=== PATIENT | male | born 1960 | race Caucasian/White ===

== ENCOUNTER 2019-04-22 05:17 | Emergency (ER) | payer SELFPAY ==
[~2019-04-22] VITALS: Ht 165.1 cm; Wt 76.0 kg
[2019-04-22 05:22] VITALS: BP 168/89; PULSE 94; RESP 18; Ht 165.1 cm; Wt 76.0 kg
[2019-04-22] MEDS ORDERED: IBUPROFEN 600 MG TAB PO ONE (06:30)
[2019-04-22] MEDS ORDERED: CYCLOBENZAPRINE 10 MG TAB PO ONE (06:30)
[2019-04-22] MEDS ORDERED: CYCL10TA7 PO (06:52)
[2019-04-22] MEDS ORDERED: MED4DP PO (06:52)
[2019-04-22] MEDS ORDERED: NAPR-985 PO (06:52)
[2019-04-22] MEDS ORDERED: DEXAMETHASONE 10 MG/ML 1 ML INJ IM ONE (07:00)
--- NOTE | 2019-04-22 07:44 | ERD ---
ER Documentation Chief Complaint Chief Complaint right leg pain x 3 days. denies trauma HPI This is a pleasant 59-year-old Mohawk-speaking male presents to the ED complaining of right lower back pain x3 days. 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 He states pain is mostly localized to his right lower back and radiates to his anterior thigh and towards his dorsal foot. He denies any loss of bladder or bladder control. Denies any fevers or chills. Denies any history of IV drug use. Denies any direct trauma. He has not been taking any medications at home for this. He denies any history of similar pain. ROS All systems reviewed and are negative except as per history of present illness. Medications Home Meds Active Scripts Methylprednisolone* (Medrol* DOSE PACK) 4 Mg/Dose-Pack Tab.ds.pk, 4 MG PO . DIRECTED, #1 PACKET Prov:TREVIGRLEIGH FLORES PA-C 04/22/19 Cyclobenzaprine Hcl* (Cyclobenzaprine Hcl*) 10 Mg Tablet, 10 MG PO TID, #15 TAB Prov:TREVIGRLEIGH FLORES N PA-C 04/22/19 Naproxen* (Naprosyn*) 500 Mg Tablet, 500 MG PO BID PRN for PAIN AND/OR INF LAMMATION, #30 TAB Prov:LEIGH PORTILLO PA-C 04/22/19 Allergies Allergies: Coded Allergies: No Known Drug Allergies (Verified Allergy, Unknown, 04/22/19) PMhx/Soc Medical and Surgical Hx: pt denies Medical Hx, pt denies Surgical Hx Hx Alcohol Use: No Hx Substance Use: No Hx Tobacco Use: No Smoking Status: Never smoker Physical Exam Vitals Vital Signs Date Temp Pulse Resp B/P (MAP) Pulse Ox O2 O2 Flow FiO2 Time Delivery Rate 04/22/19 98.2 94 18 168/89 98 05:22 (115) Physical Exam Const: + In moderate distress secondary to pain. Head: Atraumatic Eyes: Normal Conjunctiva ENT: Normal External Ears, Nose and Mouth. Neck: Full range of motion. No meningismus. Resp: Clear to auscultation bilaterally Cardio: Regular rate and rhythm, no murmurs Abd: Soft, non tender, non distended. Normal bowel sounds Skin: No petechiae or rashes Back: No midline or flank tenderness. + Right paralumbar spinal tenderness to palpation.+ Straight leg raise on the right lower extremity. Bilateral lower extremity strength 5/5. Sensation grossly intact. Peripheral pulses intact. Ext: No cyanosis, or edema Neur: Awake and alert Psych: Normal Mood and Affect Results 24 hrs Current Medications Medications Dose Sig/Kushal Start Time Status Last (Trade) Ordered Route PRN Stop Time Admin Dose Reason Admin 20 mg ONCE ONCE 04/22/19 DC 04/22/19 Cyclobenzapri PO 06:30 04/22/19 06:25 ne HCl 06:31 (Flexeril) Ibuprofen 600 mg ONCE ONCE 04/22/19 DC 04/22/19 (Motrin) PO 06:30 04/22/19 06:25 06:31 10 mg ONCE ONCE 04/22/19 DC 04/22/19 Dexamethasone IM 07:00 04/22/19 07:00 (Decadron) 07:01 Procedures/MDM ED COURSE: The patient was given ibuprofen, Flexeril, Decadron The medication was well tolerated and the patient had market improvement in symptoms. The patient remained stable throughout ED course. MEDICAL DECISION MAKIN-year-old male presents with atraumatic back pain. There are no focal neurological deficits on physical exam. Advanced imaging was deferred as symptoms are likely musculoskeletal in origin. I have low suspicion for epidural abscess, cauda equina, cord compression, spinal tumor/mass or compression fracture. Patient will be treated conservatively with appropriate pain control. He was given referrals to [facility] and orthopedic centers for follow-up. Patient may benefit from physical therapy and/or steroid injections in the future. I discussed this with the patient and family at bedside. Strict return precautions were discussed. PRESCRIPTIONS: Naproxen, Flexeril, Medrol Dosepak SPECIALIST FOLLOW UP RECOMMENDED: Orthopedist Patient has been advised to follow up with primary care in 1-2 days. Blood Pressure Assessment: Patient's blood pressure was elevated (>120/80) but appears stable without evidence of hypertension emergency or urgency. The patient was counseled about the risks of hypertension and urged to pursue outpatient monitoring and therapy within a week with their primary care physician. Departure Diagnosis: Primary Impression: Sciatica of right side Condition: Stable Patient Instructions: Back Pain W/ Sciatica [facility] 7 a.m.- 11 p.m. Every Day of the Week NO APPOINTMENT OR AUTHORIZATION NEEDED COMMUNITY CLINIC () Usted se carney hecho un examen mdico de control que le indica que no est en isa condicin que requiera tratamiento urgente en el Departamento de Emergencia. Un estudio ms profundo y el tratamiento de pa condicin pueden esperar sin ningn riesgo hasta que usted sea atendida/o en el consultorio de ap mdico o isa clnica. Es responsabilidad suya arreglar isa ana para el seguimiento del lacie. MANEJO DE CONDICIONES NO URGENTES EN EL FUTURO 1) Si usted tiene un mdico de atencin primaria: Usted debera llamar a pa mdico de atencin primaria antes de venir al departamento de emergencia. Despus de las horas de consultorio, pa doctor o pa asociado/a est disponible por telfono. El mdico o enfermero de raymundo en el servicio telefnico puede asesorarle por louis medio para atender el problema, o lacie contrario se puede programar isa ana. 2) Si usted no tiene un mdico de atencin primaria: Llame al mdico o clnica de referencia que aparece abajo lisbeth las horas de consultorio para hacer isa ana para que le vean. CLINICAS: [facility] [phone] [facility] [phone] [facility] [phone] [facility] [phone] [facility] [phone] [address] [facility] [phone] [address] [facility] Hours: Mon-Fri 9:00 AM - 5:00 PM [facility] () Kavitha se carney hecho un examen mdico de control que le indica que no est en isa condicin que requiera tratamiento urgente en el Departamento de Emergencia. Un estudio ms profundo y el tratamiento de pa condicin pueden esperar sin ningn riesgo hasta que ted sea atendida/o en el consultorio de pa mdico o isa cl thai. Es responsabilidad suya arreglar isa ana para el seguimiento del lacie. MANEJO DE CONDICIONES NO URGENTES EN EL FUTURO 1) Si usted tiene un mdico de atencin primaria: Kavitha debera llamar a pa mdico de atencin primaria antes de venir al depart amento de emergencia. Despus de las horas de consultorio, pa doctor o pa asociado/a est disponible por telfono. El mdico o enfermero de raymundo en el servicio telefnico puede asesorarle por louis medio para atender el problema, o lacie contrario se puede programar isa ana. 2) Si usted no tiene un mdico de atencin primaria: Llame al mdico o condado institucions de referencia que aparece abajo lisbeth las horas de consultorio para hacer isa ana para que le vean. SI USTED NO PUEDE PAGAR PARA NEELA UN MEDICO puede ir a: [facility] [address] [place] [id number] [facility] [address] [place] [address] [facility] [address] [place] [address] [facility] [address] [place] [address] Additional Instructions: Paciente aconseja volver a Departamento de urgencias inmediatamente para sntomas nuevos o que empeoran . Paciente aconseja posteriores con el PCP en 1-2 millan. Si el paciente no tiene ninguna de atencin primaria pueden seguir con [facility] [address] [place] [address] o [facility] + [address] [address] LEIGH PORTILLO PA-C Apr 22, 2019 07:44
== END 2019-04-22 07:13 | disposition home or self-care (01) ==
LOC: FTE 05:17
DX: M54.41 Lumbago with sciatica, right side (principal)
CPT/HCPCS: 96372; 99284; J1100